=== PATIENT | male | born 1960 | race African-American/Black ===

== ENCOUNTER 2017-02-26 22:27 | Emergency (ER) | payer SELFPAY ==
[~2017-02-26] VITALS: Ht 167.6 cm; Wt 87.0 kg
[2017-02-27] MEDS ORDERED: TETANUS, DIPHTHERIA, PERTUSSIS VAC/PF 0.5ML (>7YR OLD) IM ONE (01:15)
[2017-02-27] MEDS ORDERED: BACITRACIN ZINC OINT UDPKT TOP ONE (01:15)
[2017-02-27] MEDS ORDERED: CLONIDINE 0.2MG TABLET PO ONE (01:15)
[2017-02-27] MEDS ORDERED: LIDOCAINE HCL 1% 20ML VIAL (Pyxis) INJ MC ONE (01:15)
[2017-02-27] MEDS ORDERED: IBUPROFEN 600MG TABLET PO ONE (01:15)
[2017-02-27] MEDS ORDERED: AMLODIPINE 5MG TABLET PO ONE (03:15)
[2017-02-27] MEDS ORDERED: CLONIDINE 0.1MG TABLET PO ONE (03:15)
[2017-02-27 03:39] VITALS: BP 135/92
== END 2017-02-27 03:49 | disposition home or self-care (01) ==
LOC: ER 22:27
DX: S61.213A Laceration without foreign body of left middle finger without damage to nail, initial encounter (principal); I10 Essential (primary) hypertension; W45.8XXA Other foreign body or object entering through skin, initial encounter; Y93.89 Activity, other specified; Y99.8 Other external cause status; Y92.89 Other specified places as the place of occurrence of the external cause
CPT/HCPCS: 12001; 90471; 90715; 99284; J3490; Z7610

== ENCOUNTER 2019-03-18 11:45 | Inpatient (IN) | payer SELFPAY ==
[~2019-03-18] VITALS: Ht 172.7 cm; Wt 99.8 kg
[2019-03-18] MEDS ORDERED: ALBUTEROL (0.083%) 2.5MG/3ML NEB HHN STA (13:00)
[2019-03-18] MEDS ORDERED: LABETALOL HCL 20MG/4ML CARPUJECT IV ONE (13:00)
[2019-03-18] MEDS ORDERED: NITROGLYCERIN OINT 1GM/INCH UDPKT TD ONE (13:00)
[2019-03-18 13:40] LABS: HEMATOCRIT. 45.2 % (42.0-52.0); HEMOGLOBIN. 15.4 g/dL (14.0-18.0); MEAN CORPUSCULAR HEMOGLOBIN 33.4 pg (28.0-32.0); MEAN CORPUSCULAR VOLUME 97.7 fL (80.0-94.0); MEAN PLATELET VOLUME 7.8 fl (7.4-10.4); PLATELET 391 x1000/uL (130-400); RED BLOOD CELL COUNT 4.62 mill/uL (4.7-6.1); RED CELL DISTRIBUTION WIDTH 14.4 % (11.6-14.6)
[2019-03-18 13:47] LABS: INR 1.4; PROTHROMBIN TIME 13.9 sec (9.6-11.0)
[2019-03-18 13:48] LABS: CHLORIDE 106 mEq/L (98-107)
[2019-03-18] MEDS ORDERED: IPRATROPIUM/ALBUTEROL 0.5-3(2.5)MG/3ML NEB HHN ONE (14:00)
[2019-03-18] MEDS ORDERED: NITROGLYCERIN 50MG PREMIX 250 ML IV NR (14:00)
[2019-03-18 14:10] LABS: PLATELET ESTIMATE NORMAL
[2019-03-18] MEDS ORDERED: FUROSEMIDE 40MG/4ML VIAL IVP ONE (15:00)
[2019-03-18] MEDS ORDERED: HYDROCODONE/ACETAMINOPHEN 5/325MG TABLET PO PRN (16:30)
[2019-03-18] MEDS ORDERED: ONDANSETRON HCL 4MG/2ML INJ IV PRN (16:30)
[2019-03-18] MEDS ORDERED: IPRATROPIUM/ALBUTEROL 0.5-3(2.5)MG/3ML NEB NEB PRN (16:30)
[2019-03-18] MEDS ORDERED: MORPHINE SULFATE 2 MG/ML CPJ (NOT FOR IM USE) IV PRN (16:30)
[2019-03-18] MEDS: CLONIDINE 0.1MG TABLET PO PRN (18:14)
[2019-03-18] MEDS ORDERED: LISINOPRIL 20MG TABLET PO NR (19:45)
[2019-03-18] MEDS ORDERED: CEFTRIAXONE 1 G PREMIX 50 ML IV NR (19:45)
[2019-03-18] MEDS ORDERED: THIAMINE HCL 100MG TABLET PO NR (19:45)
[2019-03-18] MEDS ORDERED: ENOXAPARIN 40MG/0.4ML SYR SUBCUT NR (19:45)
[2019-03-18] MEDS ORDERED: FUROSEMIDE 40MG/4ML VIAL IV NR (20:00)
[2019-03-18] MEDS ORDERED: DOXYCYCLINE 100 MG in DEXT 5% WATER 100 ML IV SCH (20:30)
[2019-03-18 23:00] LABS: BG BASE EXCESS -12.6 mmol/L (-2.0-2.0); BG BILEVEL POS AIRWAY PRESSURE 15/5; BG CARBOXYHEMOGLOBIN 0.4 % (0.5-1.5); BG DEOXYHEMOGLOBIN 0.7 % (0.0-5.0); BG FRACTION INSPIRED OXYGEN 60; BG HCO3 ACT 10.7 mmol/L (22.0-26.0); BG METHEMOGLOBIN 0.3 % (0.0-1.5); BG OXYGEN SATURATION 99.3 % (92.0-98.5); BG OXYHEMOGLOBIN 98.6 % (94.0-97.0); BG PCO2 20.6 mmHg (35.0-45.0); BG PH 7.335 (7.350-7.450); BG PO2 216.4 mmHg (75.0-100.0); BG SAMPLE SITE RIGHT RADIAL; BG VENT MODE MASK - BIPAP
[2019-03-19] VITALS (105 sets, daily range): BP systolic 61–240; BP diastolic 24–153
[2019-03-19] MEDS ORDERED: IPRATROPIUM/ALBUTEROL 0.5-3(2.5)MG/3ML NEB HHN PRN
[2019-03-19] MEDS ORDERED: AZITHROMYCIN 500 MG in DEXT 5% WATER 250 ML IV SCH (00:30)
[2019-03-19] MEDS ORDERED: DOPAMINE 400MG/250ML PREMIX 250 ML IV PRN (01:15)
[2019-03-19 01:33] LABS: BG BASE EXCESS -9.2 mmol/L (-2.0-2.0); BG DEOXYHEMOGLOBIN 2.2 % (0.0-5.0); BG FRACTION INSPIRED OXYGEN 100; BG HCO3 ACT 16.7 mmol/L (22.0-26.0); BG METHEMOGLOBIN 0.3 % (0.0-1.5); BG OXYGEN SATURATION 97.8 % (92.0-98.5); BG OXYHEMOGLOBIN 97.5 % (94.0-97.0); BG PCO2 36.1 mmHg (35.0-45.0); BG PH 7.282 (7.350-7.450); BG PO2 132.2 mmHg (75.0-100.0); BG SAMPLE SITE LEFT FEMORAL; BG TIDAL VOLUME(mL) 500 mL; BG TOTAL HEMOGLOBIN 13.1 g/dL (12.0-18.0); BG VENT MODE VENT - A/C; BG VENT RATE 16 set
[2019-03-19] MEDS ORDERED: SODIUM BICARBONATE 150 MEQ in DEXTROSE 5% WATER 1,000 ML IV SCH (02:00)
[2019-03-19] MEDS: PROPOFOL 10MG/ML 100ML 100 ML IV PRN ×3 (02:28→23:53)
[2019-03-19] MEDS ORDERED: DEXTROSE 10% WATER 500 ML IV SCH (03:00)
[2019-03-19] MEDS: DEXT 10% WATER 1,000 ML IV SCH ×2 (03:56→22:20)
[2019-03-19] MEDS: IPRATROPIUM/ALBUTEROL 0.5-3(2.5)MG/3ML NEB HHN SCH ×5 (04:10→20:32)
[2019-03-19 06:05] LABS: CREATINE KINASE MB FRACTION 9.6 ng/mL (0.5-3.6)
[2019-03-19 06:17] LABS: CLARITY URINE CLOUDY (CLEAR); COLOR URINE DARK YELLOW (YELLOW); KETONES URINE NEGATIVE (NEGATIVE); LEUKOCYTE ESTERASE URINE TRACE (NEGATIVE); NITRITE URINE NEGATIVE (NEGATIVE); OCCULT BLOOD URINE 3+ (NEGATIVE); PROTEIN URINE 3+ (NEGATIVE); SPECIFIC GRAVITY URINE 1.011 (1.005-1.030)
[2019-03-19 06:35] LABS: CANNABINOID URINE SCREEN NEGATIVE (NEGATIVE); OPIATES URINE SCREEN NEGATIVE (NEGATIVE)
[2019-03-19 06:36] LABS: *AMPHETAMINES SCREEN URINE NEGATIVE (NEGATIVE); *BARBITURATES SCREEN URINE NEGATIVE (NEGATIVE)
[2019-03-19] MEDS: FUROSEMIDE 40MG/4ML VIAL IV SCH ×2 (06:36→17:22)
[2019-03-19 06:37] LABS: *BENZODIAZEPINES SCREEN URINE NEGATIVE (NEGATIVE); *COCAINE SCREEN URINE NEGATIVE (NEGATIVE); METHADONE URINE SCREEN NEGATIVE (NEGATIVE); PHENCYCLIDINE URINE SCREEN NEGATIVE (NEGATIVE)
[2019-03-19 08:10] LABS: HEMATOCRIT. 42.3 % (42.0-52.0); HEMOGLOBIN. 14.1 g/dL (14.0-18.0); MEAN CORPUSCULAR HEMOGLOBIN 33.1 pg (28.0-32.0); MEAN CORPUSCULAR VOLUME 99.5 fL (80.0-94.0); MEAN PLATELET VOLUME 8.9 fl (7.4-10.4); PLATELET 204 x1000/uL (130-400); RED BLOOD CELL COUNT 4.24 mill/uL (4.7-6.1); RED CELL DISTRIBUTION WIDTH 14.1 % (11.6-14.6)
[2019-03-19] MEDS ORDERED: THIAMINE HCL 100MG TABLET PO SCH (09:00)
[2019-03-19] MEDS: LISINOPRIL 20MG TABLET PO SCH ×2 (09:00→20:18)
[2019-03-19] MEDS: ENOXAPARIN 40MG/0.4ML SYR SUBCUT SCH ×2 (09:00→09:23)
[2019-03-19] MEDS ORDERED: LISINOPRIL 5MG TABLET PO SCH (09:00)
[2019-03-19] MEDS: ASPIRIN 81MG EC TABLET PO SCH ×2 (09:00→09:23)
[2019-03-19 09:30] LABS: BG BASE EXCESS -4.1 mmol/L (-2.0-2.0); BG CARBOXYHEMOGLOBIN 0.3 % (0.5-1.5); BG DEOXYHEMOGLOBIN 0.6 % (0.0-5.0); BG FRACTION INSPIRED OXYGEN 80; BG HCO3 ACT 18.5 mmol/L (22.0-26.0); BG METHEMOGLOBIN 0.3 % (0.0-1.5); BG OXYGEN SATURATION 99.4 % (92.0-98.5); BG OXYHEMOGLOBIN 98.8 % (94.0-97.0); BG PCO2 27.1 mmHg (35.0-45.0); BG PH 7.451 (7.350-7.450); BG PO2 299.5 mmHg (75.0-100.0); BG SAMPLE SITE RIGHT BRACHIAL; BG TIDAL VOLUME(mL) 500 mL; BG TOTAL HEMOGLOBIN 13.2 g/dL (12.0-18.0); BG VENT MODE VENT - A/C; BG VENT RATE 20 set
[2019-03-19] MEDS ORDERED: PROPOFOL 10MG/ML 100ML 100 ML IV PRN (10:30)
[2019-03-19 10:41] LABS: PLATELET ESTIMATE NORMAL
[2019-03-19] MEDS: PHENYLEPHRINE 80 MG in DEXT 5% WATER 492 ML IV PRN ×2 (10:54→22:41)
[2019-03-19] MEDS ORDERED: WATER IV PRN (11:20)
[2019-03-19] MEDS ORDERED: DEXT 5% IV PRN (11:20)
[2019-03-19] MEDS ORDERED: PHENYLEPHRINE IV PRN (11:20)
[2019-03-19] MEDS: BLOOD SUGAR DIAGNOSTIC STRIP TEST SCH ×3 (11:55→20:01)
[2019-03-19] MEDS ORDERED: PHENYLEPHRINE 80 MG in DEXT 5% WATER 492 ML IV ONE (12:00)
[2019-03-19] MEDS ORDERED: SODIUM BICARBONATE 150 MEQ in SODIUM CHLORIDE 0.45% 850 ML IV SCH (12:00)
[2019-03-19] MEDS ORDERED: NOREPINEPHRINE 32 MG in DEXT 5% WATER 468 ML IV PRN (17:45)
[2019-03-19] MEDS ORDERED: CEFTRIAXONE 1 G PREMIX 50 ML IV SCH ×2 (18:00→20:00)
[2019-03-19] MEDS ORDERED: PANTOPRAZOLE SODIUM 40 MG/VIAL IV SCH (18:00)
[2019-03-19] MEDS: VASOPRESSIN 10 UNIT in SODIUM CHLORIDE 0.9% 99.5 ML IV PRN ×2 (18:07→21:21)
[2019-03-19] MEDS: DOPAMINE 400MG/250ML PREMIX 250 ML IV PRN (18:39)
[2019-03-19] MEDS ORDERED: ACETAMINOPHEN 325MG TABLET PO PRN (20:15)
[2019-03-19] MEDS: CLONIDINE 0.1MG TABLET PO PRN (23:52)
[2019-03-20] VITALS (9 sets, daily range): BP systolic 52–189; BP diastolic 24–91
[2019-03-20] MEDS: BLOOD SUGAR DIAGNOSTIC STRIP TEST SCH (00:10)
[2019-03-20] MEDS: IPRATROPIUM/ALBUTEROL 0.5-3(2.5)MG/3ML NEB HHN SCH (00:24)
[2019-03-20] MEDS ORDERED: AZITHROMYCIN 500 MG in DEXT 5% WATER 250 ML IV SCH (00:30)
[2019-03-20] MEDS: VASOPRESSIN 10 UNIT in SODIUM CHLORIDE 0.9% 99.5 ML IV PRN (01:37)
[2019-03-20] MEDS: DOPAMINE 400MG/250ML PREMIX 250 ML IV PRN (01:37)
[2019-03-20] MEDS ORDERED: DOPAMINE 800MG PREMIX (DOUBLE) 250 ML IV PRN (01:59)
[2019-03-20] MEDS ORDERED: EPINEPHRINE 1 MG in SODIUM CHLORIDE 0.9% 249 ML IV PRN (02:30)
== END 2019-03-20 04:31 | disposition expired | DRG 720 ==
LOC: ER 11:45 → EDBEDREQ 14:01 → EDBEDREQSVC 15:03 → EDBEDREQ 15:03 → EDBEDREQTM 15:03 → 5EST 15:39 → EDBEDREQ 15:44 → ENRESERV 19:50 → CVICU 23:28
PROVIDERS: ADMIT Internal Medicine Nephrology; ATTEND Internal Medicine Nephrology
PROC: 5A09357 Assistance with Respiratory Ventilation, Less than 24 Consecutive Hours, Continuous Positive Airway Pressure (ICD-10-PCS; 2019-03-18)
PROC: 06HY33Z Insertion of Infusion Device into Lower Vein, Percutaneous Approach (ICD-10-PCS; principal; 2019-03-19)
PROC: 5A12012 Performance of Cardiac Output, Single, Manual (ICD-10-PCS; 2019-03-19)
PROC: 5A1945Z Respiratory Ventilation, 24-96 Consecutive Hours (ICD-10-PCS; 2019-03-19)
PROC: 0BH17EZ Insertion of Endotracheal Airway into Trachea, Via Natural or Artificial Opening (ICD-10-PCS; 2019-03-19)
DX: A41.9 Sepsis, unspecified organism (principal); J96.00 Acute respiratory failure, unspecified whether with hypoxia or hypercapnia; I46.9 Cardiac arrest, cause unspecified; N17.0 Acute kidney failure with tubular necrosis; R65.21 Severe sepsis with septic shock; I50.33 Acute on chronic diastolic (congestive) heart failure; J18.9 Pneumonia, unspecified organism; G93.41 Metabolic encephalopathy; I13.0 Hypertensive heart and chronic kidney disease with heart failure and stage 1 through stage 4 chronic kidney disease, or unspecified chronic kidney disease; E87.2 Acidosis; E16.2 Hypoglycemia, unspecified; M10.9 Gout, unspecified; N18.9 Chronic kidney disease, unspecified; Z79.899 Other long term (current) drug therapy
CPT/HCPCS: 36415; 36600; 71045; 78580; 80048; 80305; 81003; 82375; 82550; 82553; 82805; 82962; 83605; 83880; 84478; 84484; 87070; 93005; 93306; 93970; 94002; 94003; 94640; 94660; 96365; 99291; C9113; J0456; J0696; J1265; J1650; J1940; J2370; J2704; J3490; J7050; J7060; J7070; J7611; J7620; A4315